=== PATIENT | female | born 1995 | race African-American/Black ===

== ENCOUNTER 2018-03-12 04:59 | Inpatient (IN) ==
[2018-03-12] MEDS ORDERED: OXYTOCIN 20 UNITS in RINGER'S SOLUTION,LACTATED 1,000 ML IV ONE (05:19)
[2018-03-12] MEDS ORDERED: ceFAZolin SODIUM/DEXTROSE,ISO 2 GM/50 ML BAG IV ONE ×2 (05:19→07:45)
[2018-03-12] MEDS ORDERED: RINGER'S SOLUTION,LACTATED 1,000 ML IV PRN ×2 (05:19→13:13)
[2018-03-12] MEDS: RINGER'S SOLUTION,LACTATED 1,000 ML IV ONE ×2 (06:45→11:51)
--- NOTE | 2018-03-12 07:30 | ANES ---
Anesthesia Pre Procedure Eval Vitals/Labs: Last Vital Signs Temp 36.6 C 03/12/18 05:25 Pulse 89 03/12/18 05:25 Resp 16 03/12/18 05:25 BP 111/66 03/12/18 05:25 Pulse Ox 99 03/12/18 05:25 HOME MEDICATIONS Vits96/Iron Fum/Folic [ S] 1 tab PO DAILY 06/02/15 [Last Taken 03/11/18 07:00] ferrous sulfate 325 mg (65 mg iron) tablet,delayed release 325 mg PO DAILY #30 tab 01/04/18 [Last Taken 03/11/18 07:00] ascorbic acid (vitamin C) 500 mg tablet 500 mg PO DAILY 01/30/18 [Last Taken 03/11/18 07:00] Allergies/Adverse Reactions: Allergies Allergy/AdvReac Type Severity Reaction Status Date / Time No Known Allergies Allergy Verified 03/08/18 10:19 - Planned Procedure Planned Procedure: Repeat Section/abdominal scar revision Medication List Reviewed:: Yes Allergies Verified: Yes Medical History (Last Reviewed 03/12/18 @ 07:28 by José Antonio Ordonez CRNA) Anemia (Acute) Onset Date: 03/05/15 w/pregnancies. 2014 & 2018. Abnormality of uterus during Onset Date: 08/10/17 Obesity affecting in third trimester Onset Date: 06/01/15 with septicemia Onset Date: 01/28/14 , spontaneous incomplete Onset Date: 01/02/14 Missed AB w/sepsis & D&C 01/11/18 Surgical History (Last Reviewed 03/12/18 @ 07:28 by José Antonio Ordonez CRNA) Previous section Onset Date: 11/05/142014-reech presentation, 06/02/15-rpt c/s H/O dilation and curettage Onset Date: 08/10/17 Suction curettage, septic missed AB Family History (Last Reviewed 03/12/18 @ 07:28 by José Antonio Ordonez CRNA) Father Alive and well Mother Hypertension Grandfather Diabetes Maternal CAD (coronary artery disease) Maternal Grandmother CVA (cerebral vascular accident) Maternal Grandmother Breast cancer Paternal - Family Anesthesia History Family History:: no untoward family reactions to anesthesia - Airway/Neck/Teeth Within Normal Limits:: Yes Teeth Condition: intact Neck Exam: full range of motion Mallampatti Score: 2 Thyromental (T-M) distance: > 6 cm Mandibulo Hyoid distance: > 3 cm - Respiratory Respiratory Physical: lungs clear Smoking Status: Never smoker Sleep Apnea currently treated: No Sleep Apnea by current assessment: No - Cardiovascular Tolerate Activity: Good Heart Sounds: S1 & S2, Regular - Anesthesia Assessment and Plan ASA Class: PS, II Anesthesia Type Plan: Spinal - Bilat TAP block for postop analgesia
--- NOTE | 2018-03-12 09:06 | OR ---
Operative Report - Dictated Report Narrative: Date of delivery: 03/12/2018 Time of delivery: 08 Gender: male APGARS: 8/9 weight: 4334 grams Preoperative diagnosis: history of delivery, anemia, history of chlamydia with negative test of cure Postoperative diagnosis: same Procedure: repeat delivery Surgeon: Dr. Osuna Anesthesia: spinal Anesthesiologist: Andre Ordonez CRNA Indications for the procedure: The patient is a 22 year old who presented to labor and delivery for a repeat delivery. All risks, benefits, and alternatives of the procedure were explained to the patient and the patient consented to the procedure. Description of the procedure: The patient was taken to the operating room where spinal anesthesia was induced without difficulty. She would then prepped and draped in the supine position in the standard surgical fashion. A Pfannestiel skin incision was made. The incision was carried through the subcutaneous tissue. The fascia was incised in the midline. The fascial incision was extended sharply. The fascia was from the underlying rectus muscles. The rectus muscles were in the midline. The peritoneum was entered sharply. A large Ramon O retractor was placed. The lower uterine segment was incised in a low transverse fashion. The head was delivered in the OP presentation. The rest of the was delivered atraumatically. The cord was clamped and cut and the was handed off to the attending pediatric sta ff. The uterus was cleared of all clots and debris. The uterus was closed with 0- vicryl in a running locking fashion. Hemostasis was adequate. The fascia was closed with 1-0 vicryl. The subcutaneous tissue was closed with 2-0 monocryl. The skin was closed with 3-0 monocryl on a Madi needle. Dermabond was placed over the incision. All sponge, lap, and needle counts were correct. The patient tolerated the procedure well. She was transferred to the recovery room in stable condition. EBL: 800 mL Complications: none
--- NOTE | 2018-03-12 09:17 | ANES ---
Post Anesthesia Discharge - Transfer of Care Transfer of Care handoff given to nurse: Yes - Discharge from PACU Discharge from PACU when meets criteria: Yes
--- NOTE | 2018-03-12 09:21 | ANES ---
Anesthesia Procedure Note Procedure Note: ANESTHESIA PROCEDURE NOTE Date of procedure:[]. 03 12 2018 Time of procedure:[]. 09 00 Performed by: Andre Ordonez CRNA Cardroom Plastic Card Grader: [] Shea Felix RN . Preprocedure diagnosis: []. Status post section. Desire for postoperative analgesia. Post procedure diagnosis: Same. Procedure:[] Ultrasound-guided bilateral tap block Indications: []. Postoperative analgesia Findings: [] Patient placed in the supine position in the PACU. Patient's right abdominal wall was prepped with ChloraPrep. Ultrasound was utilized to identify fascial layer between internal oblique and trans-abdominus muscles. A 20-gauge 4 inch regional block needle was advanced under ultrasound guidance un til tip of needle was positioned just posterior to fascial layer. 20 mL of 0.25% Marcaine with epinephrine 1 200,000 was injected with adequate spread of local anesthesia noted. Procedure was then repeated on patient's left side. EBL: Minimal. Fluids: N/A. Specimen: N/A. Post procedure condition: The patient tolerated the procedure well. No complications were noted. Thank you for this consultation Andre Ordonez CRNA
--- NOTE | 2018-03-12 09:42 | ANES ---
Post Anesthesia Assessment - Vital Signs Vitals: Last Vital Signs Temp 36.6 C 03/12/18 05:25 Pulse 89 03/12/18 05:25 Resp 16 03/12/18 05:25 BP 111/66 03/12/18 05:25 Pulse Ox 99 03/12/18 05:25 Airway Patency: Normal - Mental Status Level Of Consciousness: Awake - Pain Level Pain Score: 0 - N/V Assessment Nausea/Vomiting Presence: None Dehydration:: No
[2018-03-12] MEDS ORDERED: diphenhydrAMINE HCL 25 MG CAPSULE PO PRN (10:15)
[2018-03-12] MEDS ORDERED: ONDANSETRON HCL/PF 2 MG/ML VIAL IV PRN (10:15)
[2018-03-12] MEDS ORDERED: SENNOSIDES 8.6 MG TABLET PO PRN (10:15)
[2018-03-12] MEDS ORDERED: oxyCODONE HCL/ACETAMINOPHEN 1 TAB TABLET PO PRN (10:15)
[2018-03-12] MEDS ORDERED: BISACODYL 10 MG SUPP.RECT RC PRN (10:15)
[2018-03-12] MEDS ORDERED: RINGER'S SOLUTION,LACTATED 1,000 ML IV ONE (10:15)
[2018-03-12] MEDS ORDERED: SIMETHICONE 80 MG TAB.CHEW PO PRN (10:15)
[2018-03-12] MEDS: KETOROLAC TROMETHAMINE 30 MG/ML VIAL IV PRN ×2 (10:28→21:20)
[2018-03-12] MEDS: oxyCODONE HCL/ACETAMINOPHEN 1 TAB TABLET PO PRN ×2 (11:48→21:20)
--- NOTE | 2018-03-12 12:46 | PN ---
Progess Note - Interim Date: 03/12/18 Time: 12:43 Narrative: 03/12/18 12:43 Called to bedside for a BP of 65/33, HR in the 100s. The patient appears well. She did have one episode of lightheadedness approximately 5 minutes ago. She has good color. UOP is good Urine is concentrated so started another fluid bolus Check CBC to rule out hypotension secondary to blood loss
[2018-03-12 12:51] LABS: Hemoglobin 8.1 gm/dL (12.5-16.0); Mean Cell Volume 90.2 fl (78-100); Mean Corpuscular Hemoglobin 30.7 pg (27-31); Mean Platelet Volume 10.4 fl (8-12.5); Neutrophil # 10.2 K/mm3 (1.3-6.0); Neutrophil % 82.8 % (42-75.0); Platelet Count 149 K/mm3 (150-450); Red Blood Count 2.64 M/mm3 (4.2-5.4); Red Cell Distribution Width 13.1 % (11.5-14.0); White Blood Count 12.4 K/mm3 (4.0-10.5)
[2018-03-12 12:57] LABS: Hematocrit 24.1 % (37.0-47.0)
[2018-03-12 14:28] LABS: Mean Cell Volume 90.6 fl (78-100); Mean Corpuscular Hgb Conc 34.2 g/dl (32-36); Mean Platelet Volume 10.4 fl (8-12.5); Neutrophil # 9.9 K/mm3 (1.3-6.0); Neutrophil % 81.5 % (42-75.0); Platelet Count 160 K/mm3 (150-450); Red Blood Count 2.45 M/mm3 (4.2-5.4); Red Cell Distribution Width 13.2 % (11.5-14.0); White Blood Count 12.2 K/mm3 (4.0-10.5)
[2018-03-12 14:35] LABS: Hematocrit 22.2 % (37.0-47.0); Hemoglobin 7.6 gm/dL (12.5-16.0)
--- NOTE | 2018-03-12 14:44 | PN ---
Progess Note - Interim Date: 03/12/18 Time: 14:42 Narrative: 03/12/18 14:42 Called by RN that the patient is persistently hypotensive (although asymptomatic) and tachychardic (the highest heart rate has been 115). UOP is 50 for two hours which is low. The patient remains asymptomatic. However, given hypotension will transfuse 2 units of PRBCs and recheck CBC in the AM.
[2018-03-12 17:25] LABS: Hematocrit 24.5 % (37.0-47.0); Hemoglobin 8.3 gm/dL (12.5-16.0); Mean Cell Volume 90.4 fl (78-100); Mean Corpuscular Hemoglobin 30.6 pg (27-31); Mean Corpuscular Hgb Conc 33.9 g/dl (32-36); Mean Platelet Volume 10.3 fl (8-12.5); Neutrophil # 9.4 K/mm3 (1.3-6.0); Neutrophil % 80.6 % (42-75.0); Platelet Count 153 K/mm3 (150-450); Red Blood Count 2.71 M/mm3 (4.2-5.4); Red Cell Distribution Width 13.3 % (11.5-14.0); White Blood Count 11.6 K/mm3 (4.0-10.5)
[2018-03-12 17:34] LABS: Anion Gap 13.2 mmol/L (6.8-13.8); BUN/Creatinine Ratio 14.1 (9.0-21.6); Calcium * 7.9 mg/dL (7.9-10.9); Carbon Dioxide 23.2 mmol/L (24-32.6); Estimated Creat Clear 129.1; Potassium 4.4 mmol/L (3.4-4.6)
[2018-03-12 20:05] LABS: Hematocrit 25.3 % (37.0-47.0); Hemoglobin 8.5 gm/dL (12.5-16.0); Mean Cell Volume 89.1 fl (78-100); Mean Corpuscular Hemoglobin 29.9 pg (27-31); Mean Corpuscular Hgb Conc 33.6 g/dl (32-36); Mean Platelet Volume 10.8 fl (8-12.5); Neutrophil # 7.9 K/mm3 (1.3-6.0); Neutrophil % 73.5 % (42-75.0); Platelet Count 154 K/mm3 (150-450); Red Blood Count 2.84 M/mm3 (4.2-5.4); Red Cell Distribution Width 13.8 % (11.5-14.0); White Blood Count 10.7 K/mm3 (4.0-10.5)
--- NOTE | 2018-03-12 20:17 | PN ---
Reese Note - Interim Date: 03/12/18 Time: 20:11 Narrative: 03/12/18 20:11 Came to re-examine the patient after the CT A/P was ordered. Abd: soft, NT, ND CT A/P shows a rectus sheath hematoma measuring 15 cm and intraperitoneal acute blood products on the right measuring approximately 10cm. The patient has received one unit of PRBCs and she has responded appropriately to transfusion of one unit of PRBCs. Her BP is improved from the 70s to the 90s. The second unit of blood is hanging right now. I had an extensive discussion with the patient. I explained that whenever there is bleeding associated with surgery there are two options for management. One option is to transfuse and another option is to return to surgery. I explained that many times surgical re- exploration does not identify the bleeding vessel. Based on the patient's clinical picture and based on how well she looks I have a preference to transfuse rather than to return to surgery at this point. However, will keep the patient NPO in case the need for surgical intervention arises. Will keep the Jeong catheter in to monitor input and output. Will reassess the patient in the morning unless there is a change in status. The patient verbalizes understanding of the plan of care.
[2018-03-12] MEDS: DOCUSATE SODIUM 100 MG CAPSULE PO SCH (21:19)
[2018-03-12] MEDS: RINGER'S SOLUTION,LACTATED 1,000 ML IV PRN (23:09)
[2018-03-13] MEDS: oxyCODONE HCL/ACETAMINOPHEN 1 TAB TABLET PO PRN ×6 (01:01→23:06)
[2018-03-13] MEDS: RINGER'S SOLUTION,LACTATED 1,000 ML IV PRN ×4 (05:05→23:14)
[2018-03-13] MEDS: KETOROLAC TROMETHAMINE 30 MG/ML VIAL IV PRN (05:09)
[2018-03-13 06:21] LABS: Mean Corpuscular Hgb Conc 33.3 g/dl (32-36); Neutrophil # 4.2 K/mm3 (1.3-6.0); Neutrophil % 58.8 % (42-75.0); Platelet Count 143 K/mm3 (150-450); Red Blood Count 2.76 M/mm3 (4.2-5.4); Red Cell Distribution Width 15.6 % (11.5-14.0); White Blood Count 7.2 K/mm3 (4.0-10.5)
[2018-03-13] MEDS ORDERED: ceFAZolin SODIUM/DEXTROSE,ISO 2 GM/50 ML BAG IV ONE (07:19)
--- NOTE | 2018-03-13 07:22 | PN ---
Progesjoanne Note - Interim Date: 03/13/18 Time: 07:19 Narrative: 03/13/18 07:19 The patient's hemoglobin this morning was 8 after two units of PRBCs so that's an inappropriate response to transfusion. Her BP was normal this morning as was her HR. However, she has become hypotensive and tachycardic again. Given her CT findings yesterday and her inappropriate response to transfusion will proceed with exploratory laparotomy to identify the bleeding source. The case was discussed with Dr. Sawyer and I have requested her to assist with the case.
--- NOTE | 2018-03-13 07:47 | ANES ---
Anesthesia Pre Procedure Eval Vitals/Labs: Last Vital Signs Temp 36.2 C 03/13/18 07:30 Pulse 94 03/13/18 07:30 Resp 18 03/13/18 07:30 BP 99/53 03/13/18 07:30 Pulse Ox 100 03/13/18 07:30 HOME MEDICATIONS Vits96/Iron Fum/Folic [ S] 1 tab PO DAILY 06/02/15 [Last Taken 03/11/18 07:00] ferrous sulfate 325 mg (65 mg iron) tablet,delayed release 325 mg PO DAILY #30 tab 01/04/18 [Last Taken 03/11/18 07:00] ascorbic acid (vitamin C) 500 mg tablet 500 mg PO DAILY 01/30/18 [Last Taken 03/11/18 07:00] Allergies/Adverse Reactions: Allergies Allergy/AdvReac Type Severity Reaction Status Date / Time No Known Allergies Allergy Verified 03/12/18 07:38 - Planned Procedure Planned Procedure: Exploratory Laparotomy Medication List Reviewed:: Yes Allergies Verified: Yes Medical History (Last Reviewed 03/13/18 @ 07:42 by See Storm CRNA) Anemia (Acute) Onset Date: 03/05/15 w/pregnancies. 2014 & 2018. Thrombocytopenia Abnormality of uterus during Onset Date: 08/10/17 Obesity affecting in third trimester Onset Date: 06/01/15 with septicemia Onset Date: 01/28/14 , spontaneous incomplete Onset Date: 01/02/14 Missed AB w/sepsis & D&C 01/11/18 Surgical History (Last Reviewed 03/13/18 @ 07:42 by See Storm CRNA) Previous section Onset Date: 11/05/142014-reech presentation, 06/02/15-rpt c/s H/O dilation and curettage Onset Date: 08/10/17 Suction curettage, septic missed AB Family History (Last Reviewed 03/13/18 @ 07:42 by See Storm CRNA) Father Alive and well Mother Hypertension Grandfather Diabetes Maternal CAD (coronary artery disease) Maternal Grandmother CVA (cerebral vascular accident) Maternal Grandmother Breast cancer Paternal - Family Anesthesia History Family History:: no untoward family reactions to anesthesia, no familial bleeding tendencies, no family history of clotting disorders, no family history of premature - Airway/Neck/Teeth Within Normal Limits:: Yes Teeth Condition: intact Neck Exam: full range of motion Mallampatti Score: 2 Thyromental (T-M) distance: > 6 cm Mandibulo Hyoid distance: > 3 cm - Respiratory Respiratory Physical: lungs clear Discussed smoking cessation including day of surgery: No Sleep Apnea currently treated: No Sleep Apnea by current assessment: No Discussed Risks/Treatment of BIN: No - Cardiovascular Tolerate Activity: Good Heart Sounds: S1 & S2, Regular - Anesthesia Assessment and Plan ASA Class: PS, II, E Anesthesia Type Plan: General ET Planned difficult intubation/equipment available: No
[2018-03-13 08:12] LABS: Prothrombin Time (Patient) 9.8 Seconds (9.0-11.0)
[2018-03-13 08:13] LABS: INR 0.98 INR (0.90-1.10); Partial Thrombolplastin Time 22.9 Seconds (24-32)
--- NOTE | 2018-03-13 10:31 | ANES ---
Post Anesthesia Discharge - Transfer of Care Transfer of Care handoff given to nurse: Yes - Discharge from PACU Discharge from PACU when meets criteria: Yes - Discharge to ASU Discharge to ASU-no complications/pt stable: Yes
--- NOTE | 2018-03-13 10:31 | ANES ---
Post Anesthesia Assessment - Vital Signs Vitals: Last Vital Signs Temp 36.4 C 03/13/18 10:20 Pulse 89 03/13/18 10:30 Resp 20 03/13/18 10:30 BP 122/75 03/13/18 10:30 Pulse Ox 95 03/13/18 10:30 Airway Patency: Normal - Mental Status Level Of Consciousness: Awake - Pain Level Pain Score: 3 - N/V Assessment Nausea/Vomiting Presence: None Dehydration:: No
--- NOTE | 2018-03-13 10:42 | OR ---
Operative Report - Dictated Report Narrative: Preoperative diagnosis: hypotension, tachycardia, postoperative bleeding, rectus hematoma, intraperitoneal blood collection Postoperative diagnosis: same, several sources of active bleeding noted Surgeon: Dr. Osuna Cost And Risk Analysis Manager: Dr. Sawyer Anesthesia: general Indications for the procedure: The patient is a 22 year old POD 1 s/p delivery. The patient became hypotensive after her . She was given several fluid boluses to which she responded. She was transfused a total of 4 units of PRBCs. Initially, she responded to transfusion and clinically she looked well. However, repeat hemoglobin this morning showed that her hemoglobin did not rise appropriately and her vital signs were initially normal but then deteriorated. She was counseled regarding the need for surgical intervention to control the bleeding. All risks, benefits, and alternatives of the procedure were explained to the patient and the patient consented to the procedure. Description of the procedure: The patient was taken to the operating room where general endotracheal anesthesia was induced. She was then prepped and draped in the supine position in the standard surgical fashion. The Pfannestiel skin incision was reopened. The subcutaneous tissue and the fascia was opened. Upon opening the fascia a large rectus sheath hematoma was found as described by the CT. The hematoma was evacuated. First, three bleeding areas were noted on the rectus muscle on the left. These areas were made hemostatic with 0-vicryl sutures. Hemostasis was noted. Next, surgicel was placed in the space between the fascia and the rectus muscle and it was removed after hemostasis was assured. Next, bleeding was noted intraperitoneally. The bladder flap area was noted to be bleeding and a single suture of 2-0 vicryl was used for hemostasis. Arixtra was placed over the entire bladder flap area. The bladder flap was closed with 2-0 vicryl for compression and hemostasis. Next, an area superior to the bladder flap on the left was noted to have active bleeding. This was closed with 2-0 vicryl in a running fashion. Next, the superior rectus muscle had several areas of bleeding which were made hemostatic with interrupted sutures of 0-vicryl. The intraperitoneal bleeding on the right side and the clots were evacuated from the abdomen. Hemostasis was ensured. Next, surgicel was placed on the right between the rectus muscle and the fascia. Additional hemostasis was obtained with 0-vicryl sutures. Arixtra was placed in the area between the fascia and the rectus muscles superiorly. All surfaces were again reinspected and appeared hemostatic. The fascia was closed with 1-0 vicryl in the running fashion. The subcutaneous tissue was irrigated and found hemostatic. The skin was closed with 3-0 on a Madi needle. Dermabond was placed over the incision. EBL: 500 mL Complications: none
[2018-03-13] MEDS: DOCUSATE SODIUM 100 MG CAPSULE PO SCH ×2 (10:52→20:34)
[2018-03-13] MEDS: IBUPROFEN 800 MG TABLET PO PRN ×2 (16:46→23:06)
[2018-03-13 21:33] LABS: Hemoglobin 11.3 gm/dL (12.5-16.0); Mean Cell Volume 87.5 fl (78-100); Mean Corpuscular Hgb Conc 34.2 g/dl (32-36); Mean Platelet Volume 10.4 fl (8-12.5); Neutrophil # 5.6 K/mm3 (1.3-6.0); Neutrophil % 66.9 % (42-75.0); Platelet Count 129 K/mm3 (150-450); Red Blood Count 3.77 M/mm3 (4.2-5.4); Red Cell Distribution Width 15.1 % (11.5-14.0); White Blood Count 8.4 K/mm3 (4.0-10.5)
[2018-03-14] MEDS: oxyCODONE HCL/ACETAMINOPHEN 1 TAB TABLET PO PRN ×6 (02:26→21:08)
[2018-03-14] MEDS: IBUPROFEN 800 MG TABLET PO PRN ×3 (05:25→18:33)
[2018-03-14] MEDS: RINGER'S SOLUTION,LACTATED 1,000 ML IV PRN (07:15)
--- NOTE | 2018-03-14 07:45 | PN ---
Subjective - Date and Time Seen Date: 03/14/18 Time: 07:41 Subjective Narrative: Pt feels much better. Her abdominal pain has resolved. She is not passing flatus. Objective Objective Narrative: See vital signs - Review of Systems Generalized/Overall Review: Reports: No Symptoms Reported Abdominal: Reports: Other - no flatus Misc: All systems neg except as marked - Vitals Vitals: Last Vital Signs Temp 36.8 C 03/14/18 07:29 Pulse 88 03/14/18 07:29 Resp 18 03/14/18 07:29 BP 107/58 03/14/18 07:29 Pulse Ox 97 03/14/18 07:29 - Abnormal Lab Findings Abnormal Lab Findings: Abnormal Lab Results 03/12/18 03/13/18 03/13/18 Range/Units 05:30 08:02 21:25 RBC 3.77 L (4.2-5.4) M/mm3 Hgb 11.3 L (12.5-16.0) gm/dL Hct 33.0 L (37.0-47.0) % RDW 15.1 H (11.5-14.0) % Plt Count 129 L (150-450) K/mm3 Immature Gran % (Auto) 2.60 H (0.001-0.429) % Immature Gran # (Auto) 0.22 H (0.000-0.0310) K/mm3 PTT (Mclennan) 22.9 L (24-32) Seconds Crossmatch See Detail - Exam Constitutional: Present: Alert, Oriented x3, Cooperative, No distress Cardiovascular/Chest: Present: regular rate, rhythm, no murmur Abdomen: Present: soft, nontender, distended, hypoactive Extremity: Present: non-tender, no calf tenderness Skin Exam: Present: normal color, warm/dry, no cyanosis Appearance: Present: appropriate appearance Eye contact: Present: cooperative Thoughts: Present: normal thought pattern Cauti Physician Documentation - Urinary Catheter Management 2-way Urethral Urethral Indwelling: Yes Reason for Continuing Indwelling Catheter: Measure accurate output Date of Insertion: 03/12/18 Time of Insertion: 08:15 Assessment/Plan Plan Narrative: POD 2 from delivery and POD 1 from laparotomy due to postoperative bleeding Much improved Vital signs have normalized Ambulate today Discontinue Jenog and IVF after CBC results are available
[2018-03-14 07:57] LABS: Mean Cell Volume 87.8 fl (78-100); Mean Corpuscular Hgb Conc 34.2 g/dl (32-36); Mean Platelet Volume 9.8 fl (8-12.5); Neutrophil # 5.4 K/mm3 (1.3-6.0); Neutrophil % 65.6 % (42-75.0); Platelet Count 127 K/mm3 (150-450); Red Blood Count 3.53 M/mm3 (4.2-5.4); Red Cell Distribution Width 15.2 % (11.5-14.0); White Blood Count 8.3 K/mm3 (4.0-10.5)
[2018-03-14 07:59] LABS: Hemoglobin 10.3 gm/dL (12.5-16.0)
[2018-03-14] MEDS: DOCUSATE SODIUM 100 MG CAPSULE PO SCH ×2 (09:07→21:08)
[2018-03-15] MEDS: IBUPROFEN 800 MG TABLET PO PRN ×2 (01:09→10:14)
[2018-03-15] MEDS: oxyCODONE HCL/ACETAMINOPHEN 1 TAB TABLET PO PRN ×4 (01:10→13:29)
[2018-03-15 07:31] LABS: Hematocrit 29.6 % (37.0-47.0); Mean Cell Volume 88.1 fl (78-100); Mean Corpuscular Hemoglobin 29.8 pg (27-31); Mean Corpuscular Hgb Conc 33.8 g/dl (32-36); Mean Platelet Volume 10.1 fl (8-12.5); Neutrophil % 58.6 % (42-75.0); Platelet Count 142 K/mm3 (150-450); Red Blood Count 3.36 M/mm3 (4.2-5.4); White Blood Count 6.8 K/mm3 (4.0-10.5)
[2018-03-15] MEDS: DOCUSATE SODIUM 100 MG CAPSULE PO SCH (08:37)
[2018-03-15 11:52] VITALS: BP 112/62
--- NOTE | 2018-03-15 12:29 | PN ---
Subjective - Date and Time Seen Date: 03/15/18 Time: 12:23 Subjective Narrative: Pt feels much better. Her abdominal pain has resolved. She is not passing flatus. Objective Objective Narrative: See vital signs - Review of Systems Generalized/Overall Review: Reports: No Symptoms Reported Misc: All systems neg except as marked - Vitals Vitals: Last Vital Signs Temp 36.5 C 03/15/18 11:42 Pulse 75 03/15/18 11:42 Resp 16 03/15/18 11:42 BP 112/62 03/15/18 11:42 Pulse Ox 98 03/15/18 11:42 - Abnormal Lab Findings Abnormal Lab Findings: Abnormal Lab Results 03/15/18 Range/Units 07:25 RBC 3.36 L (4.2-5.4) M/mm3 Hgb 10.0 L (12.5-16.0) gm/dL Hct 29.6 L (37.0-47.0) % RDW 15.0 H (11.5-14.0) % Plt Count 142 L (150-450) K/mm3 Immature Gran % (Auto) 4.40 H (0.001-0.429) % Immature Gran # (Auto) 0.30 H (0.000-0.0310) K/mm3 - Exam Constitutional: Present: Alert, Oriented x3, Cooperative, No distress Abdomen: Present: Normal bowel sounds, soft, nontender - distention much improved Extremity: Present: non-tender, no calf tenderness Appearance: Present: appropriate appearance Eye contact: Present: cooperative Thoughts: Present: normal thought pattern Cauti Physician Documentation - Urinary Catheter Management 2-way Urethral Urethral Indwelling: No Date of Insertion: 03/12/18 Time of Insertion: 08:15 Date of Removal: 03/14/18 Time of Removal: 09:00 Assessment/Plan Plan Narrative: POD 3 s/p delivery, POD 2 from exploratory laparotomy for postoperative bleeding The patient is doing very well Vital signs are normal Repeat CBC now and if H/H is stable patient may be discharged home She is passing flatus Follow-up as scheduled for incision check
[2018-03-15 12:40] LABS: Hematocrit 29.3 % (37.0-47.0); Hemoglobin 9.9 gm/dL (12.5-16.0); Mean Cell Volume 88.8 fl (78-100); Mean Corpuscular Hgb Conc 33.8 g/dl (32-36); Neutrophil # 3.9 K/mm3 (1.3-6.0); Neutrophil % 57.6 % (42-75.0); Platelet Count 146 K/mm3 (150-450); White Blood Count 6.8 K/mm3 (4.0-10.5)
== END 2018-03-15 13:55 | disposition home or self-care (01) | DRG 787 ==
LOC: MS 04:59 → OB 13:34
PROVIDERS: ADMIT Obstetrics & Gynecology; ATTEND Obstetrics & Gynecology
CPT/HCPCS: 36415; 59025; 74177; 80048; 85025; 85610; 85730; 86850; 86900; P9016